=== PATIENT | female | born 1980 | race Caucasian/White ===

== ENCOUNTER → 2021-11-08 | Outpatient (REF) | payer BC, OTHER ==
[~2021-11-08] MED LIST: ALBU17IN INH; ATIV1TAB7 PO; CIPR-249 PO; CIPR500T4 OR; COLA100C2 OR; COLA50CA3 PO; HYDR-3490 PO; HYDR-3715 PO; HYDR25TA6 PO; IBUP-1022 PO; IBUP80TA PO; LABE10TAB PO; LABE200T13 PO; LABE300T PO; LISI10TA22 PO; LORA1TAB4; ONDA-1 OR; OXYC1TAB23 PO; PERC5TAB12 PO; PERC7.5T8 OR; PHEN15CA6 PO; PRENTAB74 PO; PYRI1TAB5 PO; SEASONIQUE PO; TRAM50TA2 PO; ZITHTAB PO; ZOFR4TAB14 PO
== END ==
LOC: M LAB REF 16:14
PROVIDERS: ATTEND Physician Assistant Medical
DX: R20.2 Paresthesia of skin (principal)

== ENCOUNTER → 2021-11-19 | Outpatient (CLI) | payer BC | LOC: M RAD 12:08 | PROVIDERS: ATTEND Physician Assistant Medical | DX: E04.1 Nontoxic single thyroid nodule (principal); R22.1 Localized swelling, mass and lump, neck ==

== ENCOUNTER 2022-02-05 08:40 | Emergency (ER) | payer BC ==
[~2022-02-05] VITALS: Ht 165.1 cm; Wt 83.3 kg
[2022-02-05] MEDS ORDERED: PHEN37.58 (08:49)
[2022-02-05] MEDS ORDERED: POTA1TAB14 (08:49)
[2022-02-05] MEDS ORDERED: CHLO125TA (08:49)
[2022-02-05] MEDS ORDERED: ALBU2.5V10 NEB (12:03)
[2022-02-05] MEDS ORDERED: MUCI1TAB16 PO (12:05)
[2022-02-05 12:29] VITALS: BP 118/79
== END 2022-02-05 12:30 | disposition home or self-care (01) ==
LOC: M ED 08:40
DX: U07.1 COVID-19 (principal); J02.9 Acute pharyngitis, unspecified; R50.9 Fever, unspecified; R51.9 Headache, unspecified; I10 Essential (primary) hypertension; F41.9 Anxiety disorder, unspecified; Z87.442 Personal history of urinary calculi; Z79.899 Other long term (current) drug therapy; Z88.0 Allergy status to penicillin; Z91.018 Allergy to other foods

== ENCOUNTER → 2022-03-13 | Outpatient (CLI) | payer BC ==
[~2022-03-13] MED LIST changes: +ALBU2.5V10 NEB; +CHLO125TA; +MUCI1TAB16 PO; +PHEN37.58; +POTA1TAB14
== END ==
LOC: M RAD 14:05
PROVIDERS: ATTEND Nurse Practitioner Family
DX: I83.891 Varicose veins of right lower extremity with other complications (principal)

== ENCOUNTER → 2022-10-29 | Outpatient (CLI) | payer BC | LOC: M WHC 08:37 | PROVIDERS: ATTEND Obstetrics & Gynecology | DX: Z12.31 Encounter for screening mammogram for malignant neoplasm of breast (principal) ==

== ENCOUNTER → 2023-01-29 | Outpatient (REF) | payer BC ==
[~2023-01-29] MED LIST changes: +LORA1TAB23; -LORA1TAB4; +POTA-298; -POTA1TAB14
[2023-01-29 13:46] LABS: C REACTIVE PROTEIN QUANTITATIV < 0.40 MG/DL (<1.0)
[2023-01-29 13:47] LABS: RHEUMATOID FACTOR QUANT < 3.5 IU/ML (<14)
[2023-01-31 16:08] LABS: ANCA-ATYPICAL <1:20 titer (Neg:<1:20); ANTINUCLEAR ANTIBODIES DIRECT Negative (Negative); CYTOPLASMIC NEUTROP AB ANCA-C <1:20 titer (Neg:<1:20); PERINUCLEAR AB ANCA-P <1:20 titer (Neg:<1:20)
== END ==
LOC: M LAB REF 12:35
PROVIDERS: ATTEND Physician Assistant Medical
DX: R53.83 Other fatigue (principal)

== ENCOUNTER → 2023-02-17 | Outpatient (CLI) | payer BC ==
[~2023-02-17] MED LIST changes: +ISOVUE-370 76% 100ML VIAL As Ordered ONE
== END ==
LOC: M RAD 14:02
PROVIDERS: ATTEND Physician Assistant Medical
DX: R51.9 Headache, unspecified (principal); R22.1 Localized swelling, mass and lump, neck
CPT/HCPCS: 70496; 93880; Q9967

== ENCOUNTER → 2023-04-09 | Outpatient (CLI) | payer BC ==
[~2023-04-09] MED LIST changes: -ISOVUE-370 76% 100ML VIAL As Ordered ONE
== END ==
LOC: M RAD 16:34
PROVIDERS: ATTEND Physician Assistant Medical
DX: M25.562 Pain in left knee (principal)

== ENCOUNTER → 2023-05-27 | Outpatient (CLI) | payer BC ==
[2023-05-27 09:58] LABS: BASO % 0.5 % (0.0-1.0); EOS # 0.1 10^3/uL (0.0-0.5); EOS % 1.4 % (0.0-3.0); HEMATOCRIT 39.8 % (36.0-47.0); LYMPH # 1.8 10^3/uL (1.5-5.0); LYMPH % 28.3 % (24.0-44.0); MEAN CORPUSCULAR HEMOGLOBIN 30.8 pg (27.0-33.0); MEAN CORPUSCULAR HGB CONC 35.2 g/dl (32.0-36.5); MEAN CORPUSCULAR VOLUME 87.5 fl (80.0-96.0); MONO # 0.4 10^3/uL (0.0-0.8); MONO % 6.9 % (2.0-8.0); NEUTROPHILS % 62.7 % (36.0-66.0); PLATELET COUNT, AUTOMATED 213 10^3/uL (150-450); RED BLOOD COUNT 4.55 10^6/uL (4.00-5.40); WHITE BLOOD COUNT 6.4 10^3/uL (4.0-10.0)
[2023-05-27 10:14] LABS: ERYTHROCYTE SEDIMENTATION RATE 1 mm/hr (0-20)
[2023-05-27 10:27] LABS: C REACTIVE PROTEIN QUANTITATIV < 0.40 MG/DL (<1.0)
[2023-05-27 10:28] LABS: RHEUMATOID FACTOR QUANT 4.6 IU/ML (<14)
== END ==
LOC: M LAB 08:48
PROVIDERS: ATTEND Orthopaedic Surgery
DX: M17.12 Unilateral primary osteoarthritis, left knee (principal)

== ENCOUNTER → 2023-12-05 | Outpatient (CLI) | payer BC | LOC: M WHC 10:09 | PROVIDERS: ATTEND Obstetrics & Gynecology | DX: Z12.31 Encounter for screening mammogram for malignant neoplasm of breast (principal) ==

== ENCOUNTER 2024-08-13 06:45 | Day surgery (SDC) | payer BC ==
[~2024-08-13] VITALS: Ht 165.1 cm; Wt 83.9 kg
[~2024-08-13 06:45] MED LIST changes: -CHLO125TA; +CHLO125TA PO; -POTA-298; +POTA-298 PO; +SEMA0.5P
[2024-08-13 07:51] VITALS: TEMP 99.3
[2024-08-13 08:12] VITALS: BP 108/72; O2SAT 99
== END 2024-08-13 08:16 | disposition home or self-care (01) ==
LOC: M OPP 06:45
PROVIDERS: ATTEND Surgery
DX: Z12.11 Encounter for screening for malignant neoplasm of colon (principal); K64.4 Residual hemorrhoidal skin tags; I10 Essential (primary) hypertension; M19.90 Unspecified osteoarthritis, unspecified site; F41.9 Anxiety disorder, unspecified; Z88.0 Allergy status to penicillin; Z91.018 Allergy to other foods; Z79.899 Other long term (current) drug therapy

== ENCOUNTER → 2024-12-13 | Outpatient (CLI) | payer BC | LOC: M WHC 11:39 | PROVIDERS: ATTEND Obstetrics & Gynecology | DX: Z12.31 Encounter for screening mammogram for malignant neoplasm of breast (principal); R92.323 Mammographic fibroglandular density, bilateral breasts; Z98.82 Breast implant status ==

== ENCOUNTER → 2025-01-11 | Outpatient (CLI) | payer BC | LOC: M RAD 17:35 | PROVIDERS: ATTEND Physician Assistant | DX: Z46.51 Encounter for fitting and adjustment of gastric lap band (principal) ==

== ENCOUNTER → 2025-08-24 | Outpatient (REF) | payer BC ==
[~2025-08-24] MED LIST changes: -IBUP-1022 PO; +IBUP600T42 PO
[2025-08-24 15:20] LABS: C REACTIVE PROTEIN QUANTITATIV < 0.50 MG/DL (<1.0)
[2025-08-24 15:21] LABS: RHEUMATOID FACTOR QUANT 6.7 IU/ML (<14)
[2025-08-24 15:22] LABS: VITAMIN B12 LEVEL 358 PG/ML (211-911)
== END ==
LOC: M LAB REF 14:28
PROVIDERS: ATTEND Physician Assistant Medical
DX: M25.50 Pain in unspecified joint (principal); K75.81 Nonalcoholic steatohepatitis (NASH); R20.2 Paresthesia of skin